=== PATIENT | male | born 1975 | race African-American/Black ===

== ENCOUNTER 2023-06-27 00:14 | Emergency (ER) | payer MEDICAID ==
[~2023-06-27] VITALS: Ht 200.7 cm; Wt 90.6 kg
[2023-06-27 00:24] VITALS: TEMP 98.6
[2023-06-27] MEDS ORDERED: DEXAMETHASONE 10 MG/ML VIAL PO ONE (01:30)
[2023-06-27] MEDS ORDERED: IPRATROPIUM/ALBUTEROL 0.5-3(2.5)MG/3ML NEB HHN ONE (01:30)
[2023-06-27 01:31] VITALS: BP 114/91
[2023-06-27 01:55] VITALS: PULSE 88; RESP 20; O2SAT 91
[2023-06-27] MEDS ORDERED: ALBU6.7H15 INH (02:28)
== END 2023-06-27 02:40 | disposition home or self-care (01) ==
LOC: ER 00:14
DX: J45.901 Unspecified asthma with (acute) exacerbation (principal)
CPT/HCPCS: 94640; 99283; Z7610 ×4; J1100

== ENCOUNTER 2024-05-21 17:20 | Emergency (ER) | payer MEDICAID ==
[~2024-05-21] VITALS: Ht 200.7 cm; Wt 88.0 kg
[~2024-05-21 17:20] MED LIST: ALBU6.7H15 INH
[2024-05-21 17:29] VITALS: O2SAT 99
[2024-05-21] MEDS ORDERED: IBUP-2029 MT (18:01)
[2024-05-21 18:25] VITALS: BP 140/83; PULSE 68; RESP 16; TEMP 36.94740; O2SAT 99
== END 2024-05-21 19:00 | disposition home or self-care (01) ==
LOC: ER 17:20
DX: S90.821A Blister (nonthermal), right foot, initial encounter (principal); J45.909 Unspecified asthma, uncomplicated; X58.XXXA Exposure to other specified factors, initial encounter; Y93.89 Activity, other specified; Y92.89 Other specified places as the place of occurrence of the external cause; Y99.8 Other external cause status
CPT/HCPCS: 99282

== ENCOUNTER 2024-06-13 13:18 | Emergency (ER) | payer MEDICAID ==
[~2024-06-13] VITALS: Ht 193 cm; Wt 100.0 kg
[~2024-06-13 13:18] MED LIST changes: +IBUP-2029 MT
[2024-06-13 13:38] VITALS: BP 154/86; PULSE 96; RESP 18; TEMP 98.7; O2SAT 99
[2024-06-13] MEDS ORDERED: IBUP-2028 MT (14:41)
[2024-06-13] MEDS ORDERED: IBUP-2029 MT (14:45)
== END 2024-06-13 14:56 | disposition home or self-care (01) ==
LOC: ER 13:31
DX: R52 Pain, unspecified (principal); J45.909 Unspecified asthma, uncomplicated; Z76.0 Encounter for issue of repeat prescription
CPT/HCPCS: 99282